=== PATIENT | female | born 1960 | race Caucasian/White ===

== ENCOUNTER 2020-02-07 07:15 | Emergency (ER) | payer MEDICAID ==
[~2020-02-07] VITALS: Ht 170.2 cm; Wt 68.2 kg
[2020-02-07 07:19] VITALS: Ht 170.2 cm; Wt 68.2 kg
[2020-02-07] MEDS ORDERED: PHENAZOPYRIDIN100 MG PO (07:25)
[2020-02-07 08:00] LABS: ANION GAP 12.3 mmol/L (8-16); CARBON DIOXIDE 25.5 mmol/L (21.0-32.0); CREATININE - SERUM 1.1 mg/dL (0.6-1.3); POTASSIUM - SERUM 3.8 mmol/L (3.5-5.1)
[2020-02-07 08:04] LABS: BASOPHILS 0.1 % (0-2); EOSINOPHILS 0.4 % (0-7); HEMATOCRIT 42.8 % (36.0-48.0); HEMOGLOBIN 14.3 g/dL (12-16); IMMATURE GRANULOCYTES 0.3 % (0-5); LYMPHOCYTES 13.5 % (15-50); MCH 29.3 pg (26.0-34.0); MCHC 33.4 g/dL (31.0-37.0); MCV 87.7 fL (80.0-100.0); MEAN PLATELET VOLUME 10.3 fL (7.4-10.4); MONOCYTES 3.7 % (2-11); PLATELET COUNT 243 10x3/uL (130-400); RBC 4.88 10x6/uL (4.00-5.40); RDW 12.9 % (11.5-14.5); WBC 13.5 10x3/uL (4.8-10.8)
[2020-02-07 08:05] LABS: ALBUMIN 4.1 g/dL (3.4-5.0); BILIRUBIN - TOTAL 0.41 mg/dL (0.2-1.3); PROTEIN - SERUM 7.1 g/dL (6.4-8.2)
[2020-02-07 08:09] LABS: BACTERIA NONE SEEN /hpf (NEGATIVE); EPITHELIAL CELLS RARE /hpf (0-5); WHITE CELLS - URINE RARE /hpf (NEGATIVE)
[2020-02-07] MEDS ORDERED: HYDROCODON-ACE1 EAC2 PO (11:24)
[2020-02-07 12:01] VITALS: BP 141/84
== END 2020-02-07 12:01 | disposition home or self-care (01) ==
LOC: D.ER 07:15
PROVIDERS: Family Medicine
DX: N28.89 Other specified disorders of kidney and ureter (principal); R10.32 Left lower quadrant pain; R31.9 Hematuria, unspecified